=== PATIENT | female | born 1990 | race Caucasian/White ===

== ENCOUNTER 2017-04-10 17:00 | Emergency (ER) | payer BC ==
[~2017-04-10] VITALS: Ht 167.6 cm; Wt 122.5 kg
[2017-04-10 17:00] VITALS: BP_SYST 128
[2017-04-10 22:07] VITALS: BP_SYST 121
== END 2017-04-10 22:06 | disposition home or self-care (01) ==
LOC: SED 17:00
DX: S90.31XA Contusion of right foot, initial encounter (principal); W22.8XXA Striking against or struck by other objects, initial encounter; Y93.89 Activity, other specified; Y92.89 Other specified places as the place of occurrence of the external cause; Y99.8 Other external cause status
CPT/HCPCS: 99284